=== PATIENT | female | born 1970 | race Caucasian/White ===

== ENCOUNTER 2018-06-04 16:02 | Inpatient (IN) | payer BC, SELFPAY ==
[~2018-06-04 16:02] MED LIST: ISOVUE-370 76%-LOCM 1 ML ONE
[2018-06-04] MEDS ORDERED: Magnesium Sulfate 2 GM in Sodium Chloride 0.9% 100 ML IVPB ONE (16:30)
--- NOTE | 2018-06-04 16:33 | RAD ---
PORTABLE UPRIGHT CHEST 06/04/18 PROVIDED CLINICAL HISTORY: Tachycardia. FINDINGS: Comparison 02/14/16. The cardiac and mediastinal silhouette is unchanged in appearance. Thoracic aortic stent graft materi al is again noted as are median sternotomy changes. The examination is rotated, limiting assessment. There is either elevation of the left hemidiaphragm or left basilar pleural or parenchymal opacity. T here is no evidence for pneumothorax. The right lung appears clear. IMPRESSION: Rotated exam, followup PA and lateral views recommended. POS: [facility]
[2018-06-04 17:28] LABS: #Eosinphils 0.2 thou/uL (0.0-0.7); #Lymphocytes 1.9 thou/uL (1.20-3.40); #Monocytes 0.6 thou/uL (0.11-0.59); %Basophils 0.2 % (0.0-1.0); %Eosinophils 1.9 % (0.0-10.0); %Lymphocytes 21.5 % (21.0-51.0); %Monocytes 7.3 % (0.0-10.0); %Neutrophils 69.1 % (42.0-75.0); Hemoglobin 13.4 g/dL (12.0-16.0); Mean Corpuscular HGB CONC 32.7 g/dL (32.0-36.0); Mean Corpuscular Hemoglobin 29.5 pg (27.0-31.0); Mean Corpuscular Volume 90.2 fL (78.0-98.0); Platelet Count 210 thou/uL (130-400); RBC Distribution Width 14.2 % (11.5-14.5); Red Blood Cell (RBC) Count 4.54 mill/uL (4.20-5.40); White Blood Cell (WBC) Count 8.7 thou/uL (4.8-10.8)
[2018-06-04] MEDS ORDERED: Acetaminophen 500 MG TAB ONE (17:38)
[2018-06-04 17:52] LABS: ALT (SGPT) 15 U/L (8-55); AST (SGOT) 17 U/L (5-34); Albumin 3.6 g/dL (3.5-5.0); Alkaline Phosphatase 101 U/L (40-150); Anion Gap 14 mmol/L (10-20); BUN (Urea Nitrogen) 17 mg/dL (7.0-18.7); Bilirubin, Total 0.2 mg/dL (0.2-1.2); CK (CPK) 78 U/L (29-168); Calc. Creatinine Clearance 0 mL/min (70-130); Calcium 8.3 mg/dL (7.8-10.44); Carbon Dioxide 19 mmol/L (22-29); Chloride 109 mmol/L (98-107); Estimated GFR-MDRD 80; Globulin 2.6 g/dL (2.4-3.5); Glucose 102 mg/dL (70-105); Lipase 21 U/L (8-78); Potassium 4.1 mmol/L (3.5-5.1); Protein, Total 6.2 g/dL (6.0-8.3); Sodium 138 mmol/L (136-145)
[2018-06-04 17:55] LABS: Troponin I Less than 0.010 ng/mL (< 0.028)
--- NOTE | 2018-06-04 19:42 | CT ---
CTA CHEST WITH IV CONTRAST AND 3D POSTPROCESSING CTA ABDOMEN WITH IV CONTRAST AND 3D POSTPROCESSING 06/04/18 HISTORY: SVT, coronary artery disease, aortic dissection. COMPARISON: 02/14/16. FINDINGS: A stent graft in the descending thoracic aorta is again seen. No aneurysmal dilatation of the ascendi ng aorta is noted. There is continued aneurysmal dilatation of the thoracic aorta which is stable and measures about 6.2 cm. The complex dissection in the abdominal aorta is again seen, but the superior extension on the current exam starts below the level of the renal arteries unlike the previous one where it began above the level of the renal arteries. Aneurysmal dilatation of the abdominal aorta me asures 4.1 cm. Dissection extends into the right common iliac artery which has aneurysmal dilatation and measures 4.8 cm. The aneurysm contains clot formation which was not seen on the previous study. T here is good flow in the celiac axis, SMA and both renal arteries. There is surgical clips seen on th e upper abdominal aorta. Right sided thyroid nodule is stable. No pneumothoraces, lobar consolidation, or lung masses are note d. There are mild dependent changes in the lung bases. No pleural or pericardial effusions are seen. Changes of CABG are again noted. The liver, spleen, pancreas, adrenal glands and kidneys are unremarkable. There is sigmoid diverticul osis. The uterus is present. No free air, free fluid is noted in the abdomen. Degenerative changes ar e present in the spine. 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 Extent of dissection of the abdominal aorta starts at a lo wer level compared to the previous study of 02/14/16. POS: [facility]
[2018-06-04 20:44] LABS: Troponin I Less than 0.010 ng/mL (< 0.028)
[2018-06-04] MEDS ORDERED: Ondansetron ODT 4 MG TAB SL PRN (22:21)
[2018-06-04] MEDS ORDERED: Ondansetron HCl/PF 4 MG/2 ML Vial IVP PRN (22:21)
[2018-06-04] MEDS ORDERED: Sodium Chloride 0.9% 1,000 ML IV SCH (22:30)
[2018-06-04] MEDS ORDERED: Aspirin 325 MG TAB PO SCH (22:30)
[2018-06-04] MEDS ORDERED: Acetaminophen 325 MG TAB PO PRN (23:06)
[2018-06-05 00:52] VITALS: BMI 32.7
[2018-06-05] MEDS: HYDROcodone/Acetaminophen 10/325 mg Tablet PO PRN ×3 (02:41→18:11)
--- NOTE | 2018-06-05 04:01 | HP ---
CODE STATUS: FULL CODE. PRIMARY CARE PHYSICIAN: Out-of-town physician. TIME OF EVALUATION: 08:05 p.m. CHIEF COMPLAINT: Palpitations. HISTORY OF PRESENT ILLNESS: This is a 48-year-old female patient with past medical history of america porras. The patient called EMS when she was found to be cold, clammy, diaphoretic. The symptoms start ed around 3:00 p.m. with no clear triggers, no alleviating factors. The patient reported that she monroy d similar symptoms 2 weeks ago and needed an electrical shock to revert the rhythm. Today, she neede d adenosine that was given at 6 and 12 mg with improvement of the rate; however, was not completely c ontrolled. The patient has been on Cardizem drip, that is now controlled. Of note, the patient also has significant past medical history of aortic aneurysm repair. Symptoms are reported as severe. REVIEW OF SYSTEMS: Constitutional: No fever, no chills. The patient reports generalized weakness. Respiratory: No cough or sputum production. shortness of breath. Cardiovascular: The patie nt reported palpitation, chest pain, shortness of breath. Gastrointestinal: No nausea, no vomiting. Diarrhea, abdominal pain. HIDE GRADER: No dizziness, headache, or feeling lightheaded. Genitourinary: N o burning with urination. Extremities: No leg swelling. All other systems were reviewed and negati ve except for the findings mentioned above. PAST MEDICAL HISTORY: CHF, arrhythmia, SVT, hyperlipidemia, hypertension, aortic dissection repair x 2. PAST SURGICAL HISTORY: Aortic valve replacement with porcine valve, aortic root repair surgery, surg ical history of cholecystectomy, . PSYCHIATRIC HISTORY: Anxiety, bipolar disorder. SOCIAL HISTORY: No alcohol, no drugs. The patient is an every-day smoker of 5 cigarettes a day. FAMILY HISTORY: Significant history of aortic aneurysm, brother dying of cardiac tamponade from aort ic rupture. ALLERGIES: Aldactone. MEDICATIONS: Amlodipine, carvedilol, losartan, aspirin, nitroglycerin, and pravastatin. PHYSICAL EXAMINATION: VITAL SIGNS: On presentation, blood pressure 167/80 with heart rate 85, respiratory rate was 18, tem perature 98.4, pain 7/10, oxygen saturation 98% on room air. GENERAL APPEARANCE: The patient is alert, oriented, not in acute distress. HEENT: Eyes, normal conjunctivae. Moist oral mucosa. Anicteric. NECK: No JVD. RESPIRATORY: Bilateral air entry. No rales, no wheezing. Symmetric expansion. CARDIOVASCULAR: Normal rate, regular rhythm. No murmurs, no gallop, no edema. ABDOMEN: Soft. Normal bowel sounds. MUSCULOSKELETAL: Baseline range of motion and strength. No tenderness. SKIN: Warm and intact. No pallor, no rash, no redness. NEUROLOGIC: Baseline sensorium. No evidence of any new focal weakness. Baseline speech. Cranial n erves seem to be intact. PSYCHIATRIC: The patient is in good mood. No anxiety. Oriented, optimal judgment. DIAGNOSTIC DATA: EKG was reviewed. The patient has normal sinus rhythm, left ventricular hypertroph y with repolarization abnormalities. Ventricular rate 87, W[place] 158, QRS 78, QT corrected 452. CT diss ection was reviewed and discussed with the performing physician from ER. The patient has stent graft in the distal thoracic aorta, dissection of the abdominal aorta without aneurysm of the abdominal ao rta and right common iliac artery. Extent of dissection of the abdominal aorta is at a lower level c ompared to the previous study from 02/18/2016. LABORATORY DATA: Labs were reviewed. White count 8.7 with hemoglobin 13.4, MCV 90.2, platelet count 210. Sodium 138, potassium 4.1, chloride 109, carbon dioxide 19, anion gap 14, BUN 17, creatinine 0 .7, GFR 80, glucose 102, calcium 8.3. LFTs were normal. Troponin was negative x2. Beta natriuretic peptide was negative. Lipase was normal. ASSESSMENT AND PLAN: The patient will be placed in the hospital with following medical problems. 1. Episode of paroxysmal supraventricular tachycardia, got controlled with Cardizem drip, failed to control with adenosine. I will consult Cardiology. We will follow recommendations. 2. History of dissection and aortic aneurysm. CT findings were reviewed with performing physician f kami , who has contacted Dr. Kaur and will see the patient. Reportedly, no need for any acute inte rvention at this point. We will control blood pressure. 3. Uncontrolled hypertension. The patient is on Cardizem drip. We will reconcile home meds, adjust treatment as needed. 4. History of hyperlipidemia. Reconcile home medications. Low-cholesterol diet is advised. 5. Deep venous thrombosis prophylaxis. 6. Reported history of congestive heart failure. This is not on records, we will order an echo.
[2018-06-05 05:58] LABS: #Eosinphils 0.2 thou/uL (0.0-0.7); #Lymphocytes 1.9 thou/uL (1.20-3.40); #Monocytes 0.5 thou/uL (0.11-0.59); %Basophils 0.2 % (0.0-1.0); %Eosinophils 2.7 % (0.0-10.0); %Lymphocytes 28.8 % (21.0-51.0); %Monocytes 8.1 % (0.0-10.0); %Neutrophils 60.2 % (42.0-75.0); Hemoglobin 12.8 g/dL (12.0-16.0); Mean Corpuscular HGB CONC 33.2 g/dL (32.0-36.0); Mean Corpuscular Hemoglobin 29.9 pg (27.0-31.0); Mean Corpuscular Volume 89.9 fL (78.0-98.0); Mean Platelet Volume 7.1 fL (7.4-10.4); Platelet Count 217 thou/uL (130-400); RBC Distribution Width 14.2 % (11.5-14.5); Red Blood Cell (RBC) Count 4.28 mill/uL (4.20-5.40); White Blood Cell (WBC) Count 6.7 thou/uL (4.8-10.8)
[2018-06-05 06:13] LABS: Anion Gap 13 mmol/L (10-20); BUN (Urea Nitrogen) 18 mg/dL (7.0-18.7); Calc. Creatinine Clearance 170 mL/min (70-130); Calcium 8.6 mg/dL (7.8-10.44); Carbon Dioxide 19 mmol/L (22-29); Chloride 109 mmol/L (98-107); Estimated GFR-MDRD 85; Glucose 106 mg/dL (70-105); Sodium 137 mmol/L (136-145)
[2018-06-05] MEDS ORDERED: Diabetic Tussin 200 MG/10 ML UDCUP PO PRN (08:35)
[2018-06-05] MEDS ORDERED: Temazepam 15 MG CAP PO PRN (08:35)
[2018-06-05] MEDS ORDERED: Ondansetron HCl/PF 4 MG/2 ML Vial IVP PRN (08:35)
[2018-06-05] MEDS ORDERED: Senokot 8.6 MG TAB PO PRN (08:35)
[2018-06-05] MEDS ORDERED: Loperamide HCl 2 MG CAP PO PRN (08:35)
[2018-06-05] MEDS ORDERED: Nitroglycerin 0.4 MG TAB (25 Tab Bottle) SL PRN (08:35)
[2018-06-05] MEDS ORDERED: Loratadine 10 MG TAB PO PRN (08:35)
[2018-06-05] MEDS ORDERED: cloNIDine 0.1 MG TAB PO PRN (08:35)
[2018-06-05] MEDS ORDERED: Chloraseptic Spray 180 ml Bottle PO PRN (08:35)
[2018-06-05] MEDS ORDERED: Milk Of Magnesia 30 ML UDCUP PO PRN (08:35)
[2018-06-05] MEDS ORDERED: Eucerin (Mineral Oil/Petrolatum,White) 30 gm Jar TOP PRN (08:35)
[2018-06-05] MEDS ORDERED: Mag-Al 1200 mg/1200 mg/30 ML UDCUP PO PRN (08:35)
[2018-06-05] MEDS ORDERED: Famotidine 20 MG TAB PO PRN (08:35)
[2018-06-05] MEDS ORDERED: Acetaminophen 325 MG TAB PO PRN (08:35)
[2018-06-05] MEDS ORDERED: Sodium Chloride 0.65% Nasal 44 ML BOT EA NARE PRN (08:35)
[2018-06-05] MEDS ORDERED: Artificial Tears 18 DROP/0.9 ML EA EYE PRN (08:35)
[2018-06-05] MEDS ORDERED: Labetalol HCl 100 MG/20 ML VIAL SLOW IVP PRN (08:35)
[2018-06-05 09:02] LABS: Cardiac Risk 4.3 (Less than 4.5)
[2018-06-05] MEDS: Amlodipine 10 MG TAB PO SCH (09:32)
[2018-06-05] MEDS: Carvedilol 25 MG TAB PO SCH ×2 (09:32→20:07)
--- NOTE | 2018-06-05 13:29 | PDOC.PN ---
- Subjective Encounter Start Date: 06/05/18 Encounter Start Time: 08:20 -: old records requested/rev Patient seen and examined. No new complaints. No overnight events - Objective Resuscitation Status: Resuscitation Status FULL:Full Resuscitation MAR Reviewed: Yes Vital Signs & Weight: Vital Signs (12 hours) Temp Pulse Resp BP Pulse Ox 06/05/18 12:26 53 L 106/55 L 06/05/18 11:40 98.2 F 56 L 19 116/56 L 96 06/05/18 09:32 67 06/05/18 09:27 97.6 F 67 16 142/68 H 96 06/05/18 04:22 97.5 F L 79 20 144/78 H 96 Weight Weight 252 lb I&O: 06/04/18 06/05/18 06/06/18 06:59 06:59 06:59 Intake Total 135 Balance 135 Result Diagrams: 06/05/18 05:23 06/05/18 05:23 Radiology Reviewed by me: Yes EKG Reviewed by me: Yes Phys Exam - Physical Examination Constitutional: NAD HEENT: PERRLA, moist MMs, sclera anicteric Neck: no JVD, supple Respiratory: no wheezing, no rales, no rhonchi Cardiovascular: RRR, no significant murmur, no rub Gastrointestinal: soft, non-tender, no distention, positive bowel sounds Musculoskeletal: no edema, pulses present Neurological: non-focal, normal sensation, moves all 4 limbs Lymphatic: no nodes Psychiatric: normal affect, A&O x 3 Skin: no rash, normal turgor Dx/Plan (1) Chest pain Code(s): R07.9 - CHEST PAIN, UNSPECIFIED Status: Acute (2) Dissection of abdominal aorta Code(s): I71.02 - DISSECTION OF ABDOMINAL AORTA Status: Chronic (3) Hypertension Code(s): I10 - ESSENTIAL (PRIMARY) HYPERTENSION Status: Chronic (4) Obesity (BMI 30.0-34.9) Code(s): E66.9 - OBESITY, UNSPECIFIED Status: Chronic - Plan cont current plan of care * cardiology and cardiovascular surgeon consulted * will consider discharge based on consultants recommendation * medication reviewed as below * symptomatic treatment. Review of Systems - Review of Systems Eyes: negative: Pain, Vision Change, Conjunctivae Inflammation, Eyelid Inflammation, Redness, Other ENT: negative: Ear Pain, Ear Discharge, Nose Pain, Nose Discharge, Nose Congestion, Mouth Pain, Mouth Swelling, Throat Pain, Throat Swelling, Other Respiratory: negative: Cough, Dry, Shortness of Breath, Hemoptysis, SOB with Excertion, Pleuritic Pain, Sputum, Wheezing Cardiovascular: negative: chest pain, palpitations, orthopnea, paroxysmal nocturnal dyspnea, edema, light headedness, other Gastrointestinal: negative: Nausea, Vomiting, Abdominal Pain, Diarrhea, Constipation, Melena, Hematochezia, Other Genitourinary: negative: Dysuria, Frequency, Incontinence, Hematuria, Retention , Other Musculoskeletal: negative: Neck Pain, Shoulder Pain, Arm Pain, Back Pain, Hand Pain, Leg Pain, Foot Pain, Other Skin: negative: Rash, Lesions, Raúl, Bruising, Other - Medications/Allergies Allergies/Adverse Reactions: Allergies Allergy/AdvReac Type Severity Reaction Status Date / Time nalbuphine HCl [From Nubain] Allergy Verified 02/14/16 18:34 spironolactone Allergy Verified 06/05/18 00:32 [From Aldactone] Medications: Current Medications Acetaminophen (Tylenol) 650 mg PO Q4H PRN PRN Reason: Headache/Fever or Mild Pain Hydrocodone Bitart/Acetaminophen ([place] 10/325) 1 tab PO TIDPRN PRN PRN Reason: Moderate Pain (4-6) Last Admin: 06/05/18 10:30 Dose: 1 tab Al Hydroxide/Mg Hydroxide (Maalox) 15 ml PO Q4H PRN PRN Reason: Heartburn or Indigestion Amlodipine Besylate (Norvasc) 10 mg PO DAILY [facility] Last Admin: 06/05/18 09:32 Dose: 10 mg Artificial Tears (Tears Naturale) 0 drop EA EYE PRN PRN PRN Reason: Dry Eyes Carvedilol (Coreg) 37.5 mg PO BID [facility] Last Admin: 06/05/18 09:32 Dose: 37.5 mg Clonidine (Catapres) 0.1 mg PO Q4H PRN PRN Reason: Systolic BP > 180 Famotidine (Pepcid) 20 mg PO BIDPRN PRN PRN Reason: Heartburn or Indigestion Guaifenesin (Robitussin Sf) 200 mg PO Q4H PRN PRN Reason: Cough Diltiazem HCl 125 mg/Miscellaneous Medication 1 each/ Sodium Chloride 125 mls @ 5 mls/hr IVPB INF SUSAN PRN Reason: Protocol Stop: 06/05/18 16:29 Last Admin: 06/05/18 00:47 Dose: Not Given Labetalol HCl (Normodyne) 20 mg SLOW IVP Q4H PRN PRN Reason: Systolic BP > 180 Loperamide HCl (Imodium) 2 mg PO PRN PRN PRN Reason: Diarrhea/Loose Stools Loratadine (Claritin) 10 mg PO DAILYPRN PRN PRN Reason: Sinus Symptoms Magnesium Hydroxide (Milk Of Magnesium) 30 ml PO DAILYPRN PRN PRN Reason: Constipation Mineral Oil/White Petrolatum (Eucerin Cream) 0 gm TOP BIDPRN PRN PRN Reason: Dry Skin Nitroglycerin (Nitrostat) 0.4 mg SL PRN PRN PRN Reason: Pain Ondansetron HCl (Zofran Odt) 4 mg PO Q6H PRN PRN Reason: Nausea/Vomiting Ondansetron HCl (Zofran) 4 mg IVP Q6H PRN PRN Reason: Nausea/Vomiting Phenol (Chloraseptic [place] 180 Ml Bot) 0 ml PO PRN PRN PRN Reason: Sore Throat Senna (Senokot) 2 tab PO HSPRN PRN PRN Reason: Constipation Sodium Chloride ([place] Nasal [place] 0.65%) 0 ml EA NARE QIDPRN PRN PRN Reason: Nasal Congestion Temazepam (Restoril) 15 mg PO HSPRN PRN PRN Reason: Insomnia
[2018-06-05] MEDS: Ondansetron ODT 4 MG TAB PO PRN (13:59)
--- NOTE | 2018-06-06 01:08 | CON ---
DATE OF CONSULTATION: 06/05/2018 ELECTROPHYSIOLOGY CONSULTATION REFERRING PHYSICIAN: Johana Alvarado MD I am seeing Ms. Aldrich at our [facility] telemetry floor as an electrophysiology independent crop consultant. Her problems are, 1. Paroxysmal supraventricular tachycardia. A. 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 B. Adenosine termination in the ER was noted. 2. History of aortic dissection, status post ascending aneurysm repair and valve placement. A. CT scan from 06/2018 suggestive of stent graft in the distal thoracic aorta, dissection of the ab dominal aorta with aneurysm of the abdominal aorta and right common iliac artery is seen. Somewhat l ower level than on prior study on 02/14/2016. 3. History of bioprosthetic aortic valve replacement at the time of the aneurysm repair. 4. History of hypertension. 5. Obesity. 6. History of congestive heart failure. 7. History of hyperlipidemia. ALLERGIES: ALDACTONE. MEDICATIONS AT HOME: Included amlodipine, potassium, carvedilol, nitroglycerin, hydrocodone. SUBJECTIVE: Ms. Aldrich is here with symptoms of rapid palpitations. These have been bothering her fo r last 5 years. She was told that she had atrial fibrillation in the past, but more recently she was told she had SVT. She was treated with flecainide for over a year, which she takes on a p.r.n. basi s. This seems to have controlled her episodes well. More recently, she was in the hospital and she was re-evaluated by Cardiology service in [place] where she lived at that time, but then she w as told not to take flecainide anymore for possible concerns for complications. Her episodes occasio sandra responds to vagal maneuvers, but at this time required adenosine for termination in the ER. Si nce then she is doing fair. She has no dizziness, loss of consciousness. She never passed out with these episodes. She has significant chest pains bilaterally at the time of the pains, which waxes an d wanes. No stroke-like symptoms. No neurological deficits. No fever, chills, cough. No new sympt oms suggestive of dissection. Rest of 12-point systems is otherwise unremarkable. PAST MEDICAL HISTORY: As above. SOCIAL HISTORY: The patient denies ETOH or drug use. Light smoker. FAMILY HISTORY: Significant for a brother dying of dissection and tamponade recently. Also, mother and father had heart history. She herself denies having history of morphinism. OBJECTIVE DATA: VITAL SIGNS: Blood pressure 106/55, heart rate 53, respirations 12, temperature 98.2 degrees Fahrenh eit. GENERAL: Alert and oriented obese woman in no apparent distress. NECK: Supple. Jugular veins are not distended. CHEST: Coarse without crackles. CARDIOVASCULAR: Heart sounds are regular to rate and rhythm. 1/6 systolic ejection murmur is heard. No gallop is appreciated. ABDOMEN: Benign. Bowel sounds are positive. EXTREMITIES: Lower extremities without edema, clubbing, or cyanosis. Pulses are adequate. NEUROLOGIC: The patient is nonfocal. MUSCULOSKELETAL: Without joint swelling or deformities. SKIN: Without rash. DATABASE: The EKGs were reviewed, supplied by the ER. Initial EKG reveals a narrow-complex supraven tricular tachycardia with rates about 170 beats per minute. The PVA seems to be closely following th e QRS within [address]-T changes are also seen. After adenosine, EKGs reveale d sinus rhythm with no ST-T changes. Normal [place] interval. CT of the chest reveals stent graft in the descending thoracic aorta seen and dissection is seen in t he abdominal aorta with aneurysm of the abdominal aorta and the right common iliac artery, seems to b e in lower level than in 02/2016. ASSESSMENT AND PLAN: Ms. Aldrich is a pleasant 48-year-old woman with history of aortic dissection, bi oprosthetic aortic valve in place who had also aortic aneurysm repair and thoracic aorta stenting. S he still has residual descending aortic dissection treated conservatively. She is presenting with re current palpitations. 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 She also carries a history of paroxys mal atrial fibrillation prior to this, but that is not documented on the chart. 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 Alternative to that would be more aggressive AV brcok blocking agents and resumption of her antiarrhythmic agents. At this point, I would prefer an invasive approach. P adam to that, I would like to obtain more comprehensive cardiac evaluation regarding her current aneu rysm status as well as her valve status. Echocardiogram was already performed, results pending. Rec ords from [place] would be also helpful. Tentatively, we will schedule her for an EP study fo r 06/08/2018. I discussed the procedure and risks and benefits involved with that. At this point, w e are planning EP study and possible ablation procedure. chance of infection, bleeding, tampon della, worsening dissection as well. We will follow with you. Thank you for allowing me to participate in the care of this patient.
--- NOTE | 2018-06-06 02:53 | CON ---
DATE OF CONSULTATION: 06/05/2018 HISTORY: Joy Aldrich is a 48-year-old white female from [place] who has history of aortic valve replacement with porcine valve, as well as aortic root repair, and history of aortic dissection repair also at another time. She states that approximately 8 or 9 years ago, she started having problems with rapid heartbeat. She states every 3-4 months, she will have to go to the emergency room for termination of this. The last episode was 2 weeks ago and apparently she had to have electrical cardioversion. Apparently, from what she is saying, no one has ever mentioned the possibility of radiofrequency ablation of this. She had another such episode yesterday. Heart rate was 176 per minute on the strips from the paramedics. She was given adenosine 6 mg and 12 mg with improvement in the right, but was not in control. She was placed on Cardizem drip and converted to sinus rhythm. Cardizem drip was stopped earlier today due to heart rates less than 60 per minute. PAST MEDICAL HISTORY: Supraventricular tachycardia, hyperlipidemia, hypertension, aortic valve replacement and aortic dissection repair and apparently another dissection repair at a later time. MEDICATIONS: Amlodipine 10 mg daily, carvedilol 25 mg 1-1/2 b.i.d., nitroglycerin p.r.n., potassium 25 mg daily and [place]. ALLERGIES: SPIRONOLACTONE, and NUBAIN. SOCIAL HISTORY: She does not drink. She smokes 5 cigarettes per day. FAMILY HISTORY: Significant for brother dying of cardiac tamponade from aortic rupture. REVIEW OF SYSTEMS: Twelve point review of systems otherwise unremarkable. PHYSICAL EXAMINATION: VITAL SIGNS: 143/79, pulse of 77. HEENT: PERRL. NECK: Supple. CHEST: Clear. CARDIAC: S1, S2 normal, without any S3, S4. There is a 1/6 systolic murmur. Carotid upstrokes normal, without bruits. ABDOMEN: Normal bowel sounds, without tenderness. Obese. EXTREMITIES: Revealed no clubbing, cyanosis or edema. NEUROLOGIC: Grossly intact. SKIN: Warm and dry. LABORATORY: EKGs at the scene revealed supraventricular tachycardia with rate of 176 per minute with nonspecific ST and T-wave changes. EKG after she converted reveals normal sinus rhythm and is a fairly unremarkable. CBC is normal. Sodium 137, potassium 4.0, chloride 109, carbon dioxide 19, BUN 18, creatinine 0.73. Cardiac enzymes x3 are normal. Cholesterol 155, triglycerides 219, HDL 36, LDL 75. Chest CT revealed a stent graft in the distal thoracic aorta and dissection of the abdominal aorta with aneurysm of the abdominal aorta and right common iliac artery. Discontinue aneurysmal dilatation of the thoracic aorta at 6.2 cm. Abdominal aortic aneurysm was 4.1 cm. IMPRESSION: 1. Supraventricular tachycardia, converted with intravenous Cardizem. 2. Status post aortic valve replacement with aortic graft. Apparently, she had surgeries second time for another area of aortic dissection. 3. Hypertension. 4. Hyperlipidemia. 5. Obesity. PLAN: Echocardiogram will be performed to to assess left ventricular function as well as aortic valvular function. It was recommended that she undergo radiofrequency ablation of her SVT since she was requiring emergency room visits every 3-4 months for termination of her arrhythmia. LISSET
[2018-06-06] MEDS: HYDROcodone/Acetaminophen 10/325 mg Tablet PO PRN ×3 (06:11→20:44)
[2018-06-06] MEDS: Carvedilol 25 MG TAB PO SCH ×2 (10:07→20:46)
[2018-06-06] MEDS: Amlodipine 10 MG TAB PO SCH (10:08)
--- NOTE | 2018-06-06 11:54 | PDOC.PN ---
- Subjective Encounter Start Date: 06/06/18 Encounter Start Time: 08:00 Patient seen and examined. No new complaints. No overnight events pt's present bedside - Objective Resuscitation Status: Resuscitation Status FULL:Full Resuscitation MAR Reviewed: Yes Vital Signs & Weight: Vital Signs (12 hours) Temp Pulse Resp BP BP Pulse Ox 06/06/18 10:08 71 06/06/18 10:05 97.8 F 71 15 135/65 96 06/06/18 04:00 98.1 F 68 18 127/60 94 L Weight Weight 260 lb 3.2 oz I&O: 06/05/18 06/06/18 06/07/18 06:59 06:59 06:59 Intake Total 135 1281 Output Total 700 Balance 135 581 Result Diagrams: 06/05/18 05:23 06/05/18 05:23 EKG Reviewed by me: Yes (nsr) Phys Exam - Physical Examination Constitutional: NAD HEENT: PERRLA, moist MMs, sclera anicteric Neck: no JVD, supple Respiratory: no wheezing, no rales, no rhonchi Cardiovascular: RRR, no rub SM+ Gastrointestinal: soft, non-tender, no distention, positive bowel sounds Musculoskeletal: no edema, pulses present Neurological: non-focal, normal sensation, moves all 4 limbs Lymphatic: no nodes Psychiatric: normal affect, A&O x 3 Skin: no rash, normal turgor Dx/Plan (1) Chest pain Code(s): R07.9 - CHEST PAIN, UNSPECIFIED Status: Acute (2) Dissection of abdominal aorta Code(s): I71.02 - DISSECTION OF ABDOMINAL AORTA Status: Chronic (3) Hypertension Code(s): I10 - ESSENTIAL (PRIMARY) HYPERTENSION Status: Chronic (4) Obesity (BMI 30.0-34.9) Code(s): E66.9 - OBESITY, UNSPECIFIED Status: Chronic (5) Dyslipidemia Code(s): E78.5 - HYPERLIPIDEMIA, UNSPECIFIED Status: Chronic (6) H/O abdominal aortic aneurysm Code(s): Z86.79 - PERSONAL HISTORY OF OTHER DISEASES OF THE CIRCULATORY SYSTEM Status: Chronic (7) H/O aortic valve replacement with porcine valve Code(s): Z95.3 - PRESENCE OF XENOGENIC HEART VALVE Status: Chronic (8) 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 Review of Systems - Review of Systems ENT: negative: Ear Pain, Ear Discharge, Nose Pain, Nose Discharge, Nose Congestion, Mouth Pain, Mouth Swelling, Throat Pain, Throat Swelling, Other Respiratory: negative: Cough, Dry, Shortness of Breath, Hemoptysis, SOB with Excertion, Pleuritic Pain, Sputum, Wheezing Cardiovascular: negative: chest pain, palpitations, orthopnea, paroxysmal nocturnal dyspnea, edema, light headedness, other Gastrointestinal: negative: Nausea, Vomiting, Abdominal Pain, Diarrhea, Constipation, Melena, Hematochezia, Other Genitourinary: negative: Dysuria, Frequency, Incontinence, Hematuria, Retention , Other Musculoskeletal: negative: Neck Pain, Shoulder Pain, Arm Pain, Back Pain, Hand Pain, Leg Pain, Foot Pain, Other Skin: negative: Rash, Lesions, Raúl, Bruising, Other - Medications/Allergies Allergies/Adverse Reactions: Allergies Allergy/AdvReac Type Severity Reaction Status Date / Time nalbuphine HCl [From Nubain] Allergy Verified 02/14/16 18:34 spironolactone Allergy Verified 06/05/18 00:32 [From Aldactone] Medications: Current Medications Acetaminophen (Tylenol) 650 mg PO Q4H PRN PRN Reason: Headache/Fever or Mild Pain Hydrocodone Bitart/Acetaminophen ([place] 10/325) 1 tab PO TIDPRN PRN PRN Reason: Moderate Pain (4-6) Last Admin: 06/06/18 06:11 Dose: 1 tab Al Hydroxide/Mg Hydroxide (Maalox) 15 ml PO Q4H PRN PRN Reason: Heartburn or Indigestion Amlodipine Besylate (Norvasc) 10 mg PO DAILY SUSAN Last Admin: 06/06/18 10:08 Dose: 10 mg Artificial Tears (Tears Naturale) 0 drop EA EYE PRN PRN PRN Reason: Dry Eyes Carvedilol (Coreg) 37.5 mg PO BID SUSAN Last Admin: 06/06/18 10:07 Dose: 37.5 mg Clonidine (Catapres) 0.1 mg PO Q4H PRN PRN Reason: Systolic BP > 180 Famotidine (Pepcid) 20 mg PO BIDPRN PRN PRN Reason: Heartburn or Indigestion Guaifenesin (Robitussin Sf) 200 mg PO Q4H PRN PRN Reason: Cough Labetalol HCl (Normodyne) 20 mg SLOW IVP Q4H PRN PRN Reason: Systolic BP > 180 Loperamide HCl (Imodium) 2 mg PO PRN PRN PRN Reason: Diarrhea/Loose Stools Loratadine (Claritin) 10 mg PO DAILYPRN PRN PRN Reason: Sinus Symptoms Magnesium Hydroxide (Milk Of Magnesium) 30 ml PO DAILYPRN PRN PRN Reason: Constipation Mineral Oil/White Petrolatum (Eucerin Cream) 0 gm TOP BIDPRN PRN PRN Reason: Dry Skin Nitroglycerin (Nitrostat) 0.4 mg SL PRN PRN PRN Reason: Pain Ondansetron HCl (Zofran Odt) 4 mg PO Q6H PRN PRN Reason: Nausea/Vomiting Last Admin: 06/05/18 13:59 Dose: 4 mg Ondansetron HCl (Zofran) 4 mg IVP Q6H PRN PRN Reason: Nausea/Vomiting Phenol (Chloraseptic [place] 180 Ml Bot) 0 ml PO PRN PRN PRN Reason: Sore Throat Senna (Senokot) 2 tab PO HSPRN PRN PRN Reason: Constipation Sodium Chloride ([place] Nasal [place] 0.65%) 0 ml EA NARE QIDPRN PRN PRN Reason: Nasal Congestion Temazepam (Restoril) 15 mg PO HSPRN PRN PRN Reason: Insomnia
[2018-06-06] MEDS: Ondansetron ODT 4 MG TAB PO PRN (22:29)
[2018-06-07 04:19] VITALS: TEMP 97.9
[2018-06-07] MEDS: HYDROcodone/Acetaminophen 10/325 mg Tablet PO PRN (09:15)
[2018-06-07] MEDS: Carvedilol 25 MG TAB PO SCH (09:18)
--- NOTE | 2018-06-07 11:03 | DIS ---
DATE OF ADMISSION: 06/04/2018 DATE OF DISCHARGE: 06/07/2018 PRIMARY CARE PHYSICIAN: [facility] call admission. DISCHARGE DISPOSITION: Home. PRIMARY DISCHARGE DIAGNOSIS: Chest pain related with paroxysmal tachycardia. SECONDARY DISCHARGE DIAGNOSES: History of repair of dissecting aneurysm of descending thoracic aorta , dyslipidemia, paroxysmal supraventricular tachycardia, history of abdominal aortic aneurysm, histor y of aortic valve replacement with porcine valve, hypertension, obesity with body mass index 33, hist ory of dissection of abdominal aorta. PRIMARY PROCEDURE/OPERATION: None. RADIOLOGICAL INVESTIGATION: Chest x-ray on admission showed no acute cardiopulmonary process. CT di ssection protocol reported as stent in distal thoracic aorta, dissection of abdominal aorta with aneu rysm of abdominal aorta and right common iliac artery. Echocardiography showed normal EF with diasto lic dysfunction, bioprosthetic aortic valve. SIGNIFICANT LABORATORY DATA: WBC 6.7, hemoglobin 12.8, platelet 217. Sodium 137, potassium 4.0, BUN 18, creatinine 0.73 and calcium 8.6. Cardiac enzymes negative x3. BNP 57.8, LDL 75, LFT normal. DISCHARGE MEDICATIONS: Tylenol #3 one or two tablets p.o. q.6 hourly p.r.n., Coreg 37.5 mg p.o. b.i. d., Cardizem CD 360 mg p.o. daily, [place] 10 one tablet t.i.d. p.r.n., nitroglycerin 0.4 mg sublingual p.r.n., potassium chloride one tablet daily. CONTRAINDICATIONS: None. CODE STATUS: FULL CODE. INPATIENT CONSULTANTS: Dr. Krueger, door liner was following while in hospital. Dr. Pancho Ahumada, geographic information scientist was consulted while in hospital. TEST RESULTS PENDING ON DISCHARGE: None. ALLERGIES: NALBUPHINE, ALDACTONE. DISCHARGE PLAN: Post hospital, the patient will follow up with primary care physician, Dr. Krueger and Dr. Pancho Ahumada as instructed. HOSPITAL COURSE: A 48-year-old female who was admitted by Dr. Herman on 06/05/2018. Please see hi s H&P for further details. The patient presented to emergency room with chest pain and on admission, she had diagnosis of SVT by paramedics with telemetry strip. The patient was given Cardizem bolus a nd subsequently Cardizem drip was started while in hospital and she converted to sinus rhythm. Dr. Dora licea was consulted. Echocardiography was obtained. Dr. Krueger recommended Electrophysiology co nsultation. Electrophysiology was recommended an electrophysiologic study given paroxysmal SVT and r ecurrent emergency room visit, but patient and her was not willing to go for any kind of proc edure and they do not want to take any chance of any risk and that is why they preferred medical ther apy. We started Cardizem CD 360 mg p.o. daily, Coreg was continued while in hospital. She was on am lodipine, which was discontinued because of Cardizem started. The patient remained hemodynamically s table. Echocardiography was unremarkable. The patient was complaining of shoulder pain on discharge , but that was on examination related with ligament related injury and that is why we prescribed Tyle nol #3 upon discharge for prescription and thus she is given instruction to follow up with orthopedic if needed. The patient and her did not want to go for any ablation procedure and that is why Cardiology recommended that we can discharge her home. The patient is seen and examined at bedside today. All review of system reviewed with her and negati ve. PHYSICAL EXAMINATION: VITAL SIGNS: Currently, temperature 97.9, pulse 73, respiratory rate 18, saturation 94%, blood press ure 143/72, weight 261 pounds. GENERAL: Patient is currently alert, awake, no obvious acute distress. HEAD: Normocephalic, atraumatic. EYES: Pupils round, reactive to light. Extraocular muscle intact. ENT: Oropharynx within normal limits. Moist mucous membranes. NECK: Supple, no JVD, no thyromegaly, no carotid bruit. LUNGS: Clear to auscultation without any rhonchi or rales. CARDIAC: S1, S2 regular, soft systolic murmur noted, no gallop, no rub. ABDOMEN: Soft, benign without any tenderness. EXTREMITIES: The patient does have mild discomfort with the shoulder joint, which is related with mo vement. No local pathology identified. NEUROLOGIC: Nonfocal examination. This patient is originally from [place] where she had aortic dissection repaired and she has r ecently moved to this area when they lived with their [id number]. Currently patient has some soci al issue and that is why they do not want to go for any kind of procedure to be done. Today, I spent enough time with the patient and her to discuss about diagnosis, treatment eduar n and answered all their questions with their satisfaction. Total time spent on discharge day 31 minutes.
[2018-06-07 12:28] VITALS: BP 119/59
== END 2018-06-07 12:46 | disposition home or self-care (01) | DRG 310 ==
LOC: ERS 16:02 → 2NO 16:49
PROVIDERS: ADMIT Internal Medicine; ATTEND Internal Medicine
DX: I47.1 Supraventricular tachycardia (principal); E66.9 Obesity, unspecified; Z68.33 Body mass index [BMI] 33.0-33.9, adult; Z86.79 Personal history of other diseases of the circulatory system; E78.5 Hyperlipidemia, unspecified; I11.0 Hypertensive heart disease with heart failure; I50.9 Heart failure, unspecified
CPT/HCPCS: 36415; 71045; 71275; 80048; 80053; 80061; 82550; 82553; 83690; 83880; 84484; 85025; 93005; 93306; 96365; 96366; 96375; 96376; J2270; J3475; J7050; Q0162

== ENCOUNTER 2019-01-11 14:43 | Emergency (ER) | payer OTHER ==
[2019-01-11 15:26] LABS: #Basophils 0.1 thou/uL (0.0-0.2); #Eosinphils 0.3 thou/uL (0.0-0.7); #Lymphocytes 1.9 thou/uL (1.20-3.40); #Monocytes 0.5 thou/uL (0.11-0.59); #Neutrophils 5.1 thou/uL (1.40-6.50); %Basophils 0.7 % (0.0-1.0); %Eosinophils 3.7 % (0.0-10.0); %Monocytes 6.4 % (0.0-10.0); %Neutrophils 65.2 % (42.0-75.0); Hemoglobin 15.6 g/dL (12.0-16.0); Mean Corpuscular HGB CONC 31.6 g/dL (32.0-36.0); Mean Corpuscular Hemoglobin 29.3 pg (27.0-31.0); Mean Corpuscular Volume 92.7 fL (78.0-98.0); Mean Platelet Volume 7.4 fL (7.4-10.4); Platelet Count 229 thou/uL (130-400); Red Blood Cell (RBC) Count 5.31 mill/uL (4.20-5.40); White Blood Cell (WBC) Count 7.8 thou/uL (4.8-10.8)
[2019-01-11] MEDS ORDERED: Lorazepam 2 MG/ML VIAL ONE (15:32)
[2019-01-11] MEDS ORDERED: Fentanyl 100 MCG/2 ML VIAL ONE ×4 (15:32→18:04)
--- NOTE | 2019-01-11 15:39 | RAD ---
PORTABLE CHEST 1 VIEW: Date: 01/11/19 Time: 1412 hours HISTORY: Upper back pain between the shoulder blades. FINDINGS: Comparison made with exam of 06/04/18. The heart size is stable. The aorta is tortuous. Thoracic aorta stent graft is again seen. No lobar c onsolidation, pneumothoraces, albert pulmonary edema, or pleural effusions are identified. IMPRESSION: No acute process. POS: C
[2019-01-11] MEDS ORDERED: Esmolol 2,500 MG/250 ML 250 ML ONE ×2 (15:51→17:55)
[2019-01-11 15:53] LABS: ALT (SGPT) 11 U/L (8-55); AST (SGOT) 11 U/L (5-34); Albumin 3.9 g/dL (3.5-5.0); Alkaline Phosphatase 116 U/L (40-150); Anion Gap 13 mmol/L (10-20); BUN (Urea Nitrogen) 15 mg/dL (7.0-18.7); Bilirubin, Total 0.3 mg/dL (0.2-1.2); CK (CPK) 62 U/L (29-168); Calc. Creatinine Clearance 0 mL/min (70-130); Calcium 9.3 mg/dL (7.8-10.44); Carbon Dioxide 25 mmol/L (22-29); Chloride 108 mmol/L (98-107); Estimated GFR-MDRD 74; Globulin 2.7 g/dL (2.4-3.5); Glucose 117 mg/dL (70-105); Lipase 16 U/L (8-78); Potassium 3.6 mmol/L (3.5-5.1); Protein, Total 6.6 g/dL (6.0-8.3); Sodium 142 mmol/L (136-145)
[2019-01-11 16:08] LABS: BHCG - Serum Negative (NEGATIVE)
[2019-01-11 16:09] LABS: Pregs Control Background? CLEAR/WHITE (CLR/WHITE); Pregs Control Bar Appear? YES (CONTROL BAR)
--- NOTE | 2019-01-11 16:28 | CT ---
CT ANGIO OF CHEST AND ABDOMEN PERFORMED WITH IV CONTRAST ENHANCEMENT WITH 3D RECONSTRUCTIONS: Date: 01/11/19 HISTORY: History of coronary bypass, aortic valve replacement, and aortic root repair surgery. History of two dissections. Complaining of sudden onset of upper back pain last night. COMPARISON: 06/04/18 study. FINDINGS: The lungs are clear of any infiltrative process. Linear changes in both bases consistent with some sc ar. No pleural effusions are identified. There is a 1.7 cm right lobe thyroid nodule. It appears stable as compared to the prior exam. No sign ificant mediastinal adenopathy. Postoperative changes with an aortic stent placement is noted. The stent begins just to the left of t he origin of the left common carotid artery. There appears to be a stent also present within the prox imal subclavian artery. I do see flow within the left subclavian and vertebral. There does appear to be a dissection which extends up into the left subclavian artery. This is best demonstrated on estrella l image 63. It is a stable finding as compared to the 06/04/18 study. There is aneurysmal dilatation of the descending thoracic aorta measuring in the same fashion as obtained on the prior examination. The more proximal aorta measures approximately 5.9 cm, which is fairly similar measurement to the pre vious exam. The aneurysm extends along the course of the descending thoracic aorta. Contrast remains within the stent and I do not visualize any definitive extraluminal contrast other than a small cresc ent of what may be contrast or calcification along the posterior wall, but this is a stable finding. The stent continues into the abdominal aorta. There was an endoleak noted on the prior examination at this level, but I only see what appears to be more of a small focus of calcification, much less prom inent than on the previous examination. The AP dimension of the aorta at this level is 4.6 cm, which is similar to the previous exam. The stent ends above the level of the celiac artery. On the previous examination, there is also contrast collection posteriorly, which was also not seen. Multiple surgic al clips are seen near the level of the renal arteries and celiac and superior mesenteric arteries. 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 The origin of the superior mesenteric artery is eccentric to the left and the vessel is tortuous. I am assuming this is just related to tortuosity. Given the multiple clips in this region, it is possib le that this is a reimplantation. The origin of the left renal artery also is more posterior in posit ion, but could just be related to the tortuosity of the vessel. There is also what may be a reimplant ation of the right renal artery, which is to the left side, and is associated with the enlarged proxi mal MAKI. On this examination, the inferior and mesenteric artery appears occluded, but I do not see a ny findings that would suggest any type of bowel wall edema. The dissection along the right side of t he aorta which extends into the right common iliac artery is similar to the previous study. The AP di mension of the aorta is approximately 4.7-4.8 cm. The aneurysmal dilatation of the right common iliac artery is also stable at approximately 3.8 cm. The visualized liver, spleen, and pancreas regions are unremarkable. Gallbladder has been removed. Right and left adrenal glands, and right and left kidneys are normal in size. No free fluid seen in t abdomen. IMPRESSION: 1. Aortic stent beginning just lateral to the left side of the left common carotid artery. There is a left subclavian stent present and a subclavian dissection is stable. The aneurysmal dilatation of t he descending thoracic aorta is similar to the previous examination. Also, the dilatation of the abdo bo aorta is similar. 2. Complex vascular anatomy. There are multiple surgical clips in what may have been some reimplanta tion of some of the abdominal aortic vessels, as discussed above. There is narrowing to the origin of the celiac artery. Very tortuous superior mesenteric artery. I am not certain if this is related to some type of reimplantation. 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 All of these changes appear similar to the previous examination. 3. Stable appearance to the abdominal aortic dissection and aneurysm with extension of the dissectio n and aneurysm into the right common iliac artery. 4. 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 I do not see any signs of any bowel wall findings associated with this. POS: TPC
[2019-01-11] MEDS ORDERED: ISOVUE-370 76%-LOCM 1 ML ONE (16:31)
--- NOTE | 2019-01-16 13:44 | EKG ---
Test Reason : Blood Pressure : / mmHG Vent. Rate : 087 BPM Atrial Rate : 087 BPM P-R Int : 162 ms QRS Dur : 082 ms QT Int : 360 ms P-R-T Axes : 058 -03 106 degrees QTc Int : 433 ms Normal sinus rhythm Possible Left atrial enlargement Left ventricular hypertrophy with repolarization abnormality Abnormal ECG Confirmed by JUAN C CARTER, JUAN CARLOS ([id number]), non linear editor CONSTANTINO ARANA ([id number]) on 01/16/2019 1:44:12 PM Referred By: Confirmed By:JUAN CARLOS IRIZARRY MD
== END 2019-01-11 18:14 | disposition short-term general hospital (02) ==
LOC: ERS 14:43
DX: I71.01 Dissection of thoracic aorta (principal); I16.0 Hypertensive urgency; I11.0 Hypertensive heart disease with heart failure; I50.9 Heart failure, unspecified; E78.5 Hyperlipidemia, unspecified; F31.9 Bipolar disorder, unspecified; F41.9 Anxiety disorder, unspecified; F17.210 Nicotine dependence, cigarettes, uncomplicated; Z79.899 Other long term (current) drug therapy
CPT/HCPCS: 36415; 71045; 71275; 80053; 82550; 83690; 83880; 84484; 84703; 85025; 86850; 86900; 86901; 93005; 94760; 96365; 96366; 96375; 96376; J2060; J3010; Q9966

== ENCOUNTER 2019-04-22 13:55 | Emergency (ER) | payer OTHER ==
[2019-04-22 14:44] LABS: #Eosinphils 0.2 thou/uL (0.0-0.7); #Lymphocytes 2.3 thou/uL (1.20-3.40); #Monocytes 0.4 thou/uL (0.11-0.59); #Neutrophils 6.1 thou/uL (1.40-6.50); %Basophils 0.3 % (0.0-1.0); %Lymphocytes 25.7 % (21.0-51.0); %Monocytes 4.1 % (0.0-10.0); %Neutrophils 67.9 % (42.0-75.0); Hemoglobin 14.5 g/dL (12.0-16.0); Mean Corpuscular Hemoglobin 29.4 pg (27.0-31.0); Mean Platelet Volume 7.1 fL (7.4-10.4); Platelet Count 230 thou/uL (130-400); RBC Distribution Width 13.2 % (11.5-14.5); Red Blood Cell (RBC) Count 4.93 mill/uL (4.20-5.40)
--- NOTE | 2019-04-22 14:52 | RAD ---
PORTABLE CHEST 1 VIEW: DATE: 04/22/2019. TIME: 2:22 p.m. HISTORY: Chest pain. FINDINGS: Comparison is made with the exam of 01/11/2019. The heart size is normal. There are changes of median sternotomy. Thoracic aortic stent graft is ag ain seen. No lobar consolidation, pneumothoraces, albert pulmonary edema, or pleural effusions are se en. IMPRESSION: No acute process. POS: OFF
[2019-04-22] MEDS ORDERED: Fentanyl 100 MCG/2 ML VIAL ONE (14:53)
[2019-04-22 15:04] LABS: ALT (SGPT) 12 U/L (8-55); AST (SGOT) 11 U/L (5-34); Albumin 4.3 g/dL (3.5-5.0); Alkaline Phosphatase 125 U/L (40-150); Anion Gap 18 mmol/L (10-20); BUN (Urea Nitrogen) 14 mg/dL (7.0-18.7); Bilirubin, Total 0.4 mg/dL (0.2-1.2); CK (CPK) 75 U/L (29-168); Calc. Creatinine Clearance 0 mL/min (70-130); Calcium 9.5 mg/dL (7.8-10.44); Carbon Dioxide 21 mmol/L (22-29); Chloride 106 mmol/L (98-107); Estimated GFR-MDRD 69; Globulin 2.8 g/dL (2.4-3.5); Glucose 132 mg/dL (70-105); Potassium 3.4 mmol/L (3.5-5.1); Protein, Total 7.1 g/dL (6.0-8.3); Sodium 142 mmol/L (136-145)
--- NOTE | 2019-04-24 11:20 | EKG ---
Test Reason : ELEVATED HR Blood Pressure : / mmHG Vent. Rate : 106 BPM Atrial Rate : 106 BPM P-R Int : 172 ms QRS Dur : 086 ms QT Int : 364 ms P-R-T Axes : 055 -02 090 degrees QTc Int : 483 ms Sinus tachycardia Possible Left atrial enlargement Left ventricular hypertrophy with repolarization abnormality Cannot rule out Septal infarct , age undetermined Abnormal ECG Confirmed by SEE WOLFF DO ([id number]), video editor CONSTANTINO ARANA ([id number]) on 04/24/2019 11:20:20 AM Referred By: Confirmed By:SEE WOLFF DO
== END 2019-04-22 15:48 | disposition home or self-care (01) ==
LOC: ERS 13:55
DX: I47.1 Supraventricular tachycardia (principal); I11.0 Hypertensive heart disease with heart failure; I50.9 Heart failure, unspecified; I49.9 Cardiac arrhythmia, unspecified; F31.9 Bipolar disorder, unspecified; E78.5 Hyperlipidemia, unspecified; F17.210 Nicotine dependence, cigarettes, uncomplicated; Z79.891 Long term (current) use of opiate analgesic; Z79.899 Other long term (current) drug therapy
CPT/HCPCS: 36415; 71045; 80053; 82550; 84484; 85025; 93005; 96374; J3010

== ENCOUNTER 2023-04-16 17:10 | Inpatient (IN) | payer OTHER ==
[~2023-04-16 17:10] MED LIST changes: -ISOVUE-370 76%-LOCM 1 ML ONE; +Iopamidol-370 76% 500 ML MDV (1 ML CHARGE) ONE
[2023-04-16] MEDS ORDERED: Ondansetron PF 4 MG/2 ML Vial ONE ×2 (17:19→18:13)
[2023-04-16] MEDS ORDERED: Nitroglycerin 0.4 MG TAB 1 EACH ONE (17:19)
[2023-04-16] MEDS ORDERED: Morphine 4 MG/ML VIAL ONE ×2 (17:19→20:16)
[2023-04-16 17:40] LABS: #Basophils 0.1 thou/uL (0.0-0.2); #Eosinphils 0.1 thou/uL (0.0-0.7); #Monocytes 0.8 thou/uL (0.11-0.59); #Neutrophils 5.6 thou/uL (1.40-6.50); %Basophils 0.6 % (0.0-1.0); %Eosinophils 1.7 % (0.0-10.0); %Lymphocytes 19.9 % (21.0-51.0); %Monocytes 9.6 % (0.0-10.0); %Neutrophils 68.1 % (42.0-75.0); Hemoglobin 13.3 g/dL (12.0-16.0); Mean Corpuscular HGB CONC 30.6 g/dL (32.0-36.0); Mean Corpuscular Hemoglobin 28.6 pg (27.0-31.0); Mean Corpuscular Volume 93.3 fl (78.0-98.0); Platelet Count 217 10x3/uL (130-400); Red Blood Cell (RBC) Count 4.65 mill/uL (4.20-5.40); White Blood Cell (WBC) Count 8.2 10x3/uL (4.8-10.8)
[2023-04-16] MEDS ORDERED: Aspirin Chewable 81 MG TAB ONE (17:44)
[2023-04-16] MEDS ORDERED: fentaNYL 50 mcg/mL 1 mL Vial ONE (18:07)
[2023-04-16] MEDS ORDERED: Nitroglycerin 50 MG/250 ML BOT 250 ML ONE (18:07)
[2023-04-16] MEDS ORDERED: Acetaminophen 500 MG TAB ONE (18:07)
[2023-04-16 18:08] LABS: ALT (SGPT) 9 U/L (8-55); AST (SGOT) 16 U/L (5-34); Albumin 3.8 g/dL (3.5-5.0); Alkaline Phosphatase 186 U/L (40-110); Anion Gap 13 mmol/L (10-20); BUN (Urea Nitrogen) 17 mg/dL (9.8-20.1); Calc. Creatinine Clearance 0 mL/min (70-130); Calcium 9.3 mg/dL (7.8-10.44); Carbon Dioxide 28 mmol/L (22-29); Chloride 105 mmol/L (98-107); Estimated GFR 80; Globulin 3.2 g/dL (2.4-3.5); Glucose 102 mg/dL (70-105); Potassium 3.6 mmol/L (3.5-5.1); Sodium 142 mmol/L (136-145)
[2023-04-16] MEDS ORDERED: Furosemide 40 MG/4 ML VIAL ONE (19:23)
[2023-04-16] MEDS ORDERED: Ondansetron ODT 4 MG TAB PO PRN (20:21)
[2023-04-16] MEDS ORDERED: Ondansetron PF 4 MG/2 ML Vial IVP PRN (20:21)
[2023-04-16] MEDS ORDERED: Acetaminophen 650 MG Suppository PR PRN (20:21)
[2023-04-16] MEDS ORDERED: Acetaminophen 325 MG TAB PO PRN (20:21)
[2023-04-16] MEDS ORDERED: niCARdipine 25 MG/10 ML SDV ONE (20:24)
[2023-04-16 21:52] LABS: Troponin I 0.015 ng/mL (< 0.028)
[2023-04-16 22:19] VITALS: BMI 39.4
[2023-04-16] MEDS ORDERED: Labetalol HCl 100 MG/20 ML VIAL SLOW IVP PRN (22:21)
[2023-04-16] MEDS: HYDROcodone/Acetaminophen 7.5/325 mg Tablet PO PRN (22:21)
[2023-04-16] MEDS ORDERED: Nitroglycerin 0.4 MG TAB (25 Tab Bottle) SL PRN (22:21)
[2023-04-16] MEDS ORDERED: hydrALAZINE 20 MG/ML VIAL SLOW IVP PRN (22:21)
[2023-04-16] MEDS: Ipratropium/Albuterol 3 ML NEB NEB PRN (22:43)
[2023-04-16] MEDS: niCARdipine 25 MG in Sodium Chloride 0.9% 250 ML 250 ML IVPB SCH (23:19)
[2023-04-17 00:33] LABS: Troponin I 0.026 ng/mL (< 0.028)
[2023-04-17] MEDS: Ipratropium/Albuterol 3 ML NEB NEB SCH ×4 (00:44→18:43)
[2023-04-17] MEDS: Morphine 2 MG/ML VIAL SLOW IVP PRN ×4 (01:19→20:54)
[2023-04-17] MEDS: HYDROcodone/Acetaminophen 7.5/325 mg Tablet PO PRN ×3 (03:41→18:52)
[2023-04-17 04:01] LABS: #Basophils 0.1 thou/uL (0.0-0.2); #Eosinphils 0.2 thou/uL (0.0-0.7); #Monocytes 0.8 thou/uL (0.11-0.59); #Neutrophils 4.8 thou/uL (1.40-6.50); %Basophils 0.7 % (0.0-1.0); %Eosinophils 2.2 % (0.0-10.0); %Lymphocytes 22.4 % (21.0-51.0); %Monocytes 10.1 % (0.0-10.0); %Neutrophils 64.2 % (42.0-75.0); Hemoglobin 13.1 g/dL (12.0-16.0); Mean Corpuscular HGB CONC 30.3 g/dL (32.0-36.0); Mean Corpuscular Volume 92.5 fl (78.0-98.0); Mean Platelet Volume 9.6 fL (7.4-10.4); Platelet Count 198 10x3/uL (130-400); RBC Distribution Width 16.1 % (11.5-14.5); Red Blood Cell (RBC) Count 4.68 mill/uL (4.20-5.40); White Blood Cell (WBC) Count 7.4 10x3/uL (4.8-10.8)
[2023-04-17 04:23] LABS: Anion Gap 12 mmol/L (10-20); BUN (Urea Nitrogen) 15 mg/dL (9.8-20.1); Calc. Creatinine Clearance 167 mL/min (70-130); Calcium 8.9 mg/dL (7.8-10.44); Carbon Dioxide 29 mmol/L (22-29); Chloride 104 mmol/L (98-107); Estimated GFR 81; Glucose 109 mg/dL (70-105); Potassium 2.9 mmol/L (3.5-5.1); Sodium 142 mmol/L (136-145)
[2023-04-17] MEDS ORDERED: Electrolyte Replacement Protocol 1 EACH FS PRN (05:45)
[2023-04-17] MEDS ORDERED: Magnesium 2 GM/50 ML(in water) 2 GM in Premix Bag 1 BAG IVPB SCH (06:00)
[2023-04-17] MEDS: Furosemide 40 MG/4 ML VIAL SLOW IVP SCH ×2 (06:34→13:27)
[2023-04-17] MEDS: Potassium Chloride 20 MEQ TAB PO SCH ×2 (06:42→10:49)
[2023-04-17] MEDS ORDERED: hydrALAZINE 20 MG/ML VIAL SLOW IVP PRN (09:09)
[2023-04-17] MEDS ORDERED: Labetalol HCl 100 MG/20 ML VIAL SLOW IVP PRN (09:09)
[2023-04-17] MEDS ORDERED: Carvedilol 25 MG TAB PO SCH (09:45)
[2023-04-17] MEDS: Famotidine/PF 20 mg/2ml Vial SLOW IVP SCH ×2 (10:18→21:01)
[2023-04-17] MEDS: Polyethylene Glycol 3350 17 GM Packet PO SCH (10:49)
[2023-04-17] MEDS ORDERED: Senokot S 8.6-50 MG TAB PO SCH (11:15)
[2023-04-17] MEDS: niCARdipine 25 MG in Sodium Chloride 0.9% 250 ML 250 ML IVPB SCH ×5 (11:27→22:08)
[2023-04-17] MEDS: Senokot S 8.6-50 MG TAB PO SCH ×2 (11:27→21:01)
[2023-04-17] MEDS ORDERED: ALPRAZolam 0.25 MG TAB PO SCH (14:00)
[2023-04-17 15:06] LABS: SARS-CoV-2 NAA Rapid Test Not Detected (NotDetected)
[2023-04-17] MEDS: Carvedilol 6.25 MG TAB PO SCH (16:52)
[2023-04-17] MEDS: Ipratropium/Albuterol 3 ML NEB NEB PRN (22:44)
[2023-04-18] MEDS: Ipratropium/Albuterol 3 ML NEB NEB SCH ×3 (00:27→13:47)
[2023-04-18] MEDS: niCARdipine 25 MG in Sodium Chloride 0.9% 250 ML 250 ML IVPB SCH ×5 (03:58→15:18)
[2023-04-18] MEDS: Morphine 2 MG/ML VIAL SLOW IVP PRN (04:47)
[2023-04-18] MEDS: Furosemide 40 MG/4 ML VIAL SLOW IVP SCH ×2 (05:42→15:18)
[2023-04-18] MEDS ORDERED: Budesonide 0.25 MG/2 ML NEB INH SCH (06:30)
[2023-04-18 06:56] LABS: #Eosinphils 0.1 thou/uL (0.0-0.7); #Monocytes 0.5 thou/uL (0.11-0.59); #Neutrophils 4.5 thou/uL (1.40-6.50); %Basophils 0.5 % (0.0-1.0); %Eosinophils 2.2 % (0.0-10.0); %Monocytes 7.9 % (0.0-10.0); %Neutrophils 71.2 % (42.0-75.0); Hemoglobin 12.9 g/dL (12.0-16.0); Mean Corpuscular HGB CONC 29.7 g/dL (32.0-36.0); Mean Corpuscular Hemoglobin 28.2 pg (27.0-31.0); Mean Platelet Volume 10.1 fL (7.4-10.4); Platelet Count 212 10x3/uL (130-400); RBC Distribution Width 16.1 % (11.5-14.5); Red Blood Cell (RBC) Count 4.57 mill/uL (4.20-5.40); White Blood Cell (WBC) Count 6.3 10x3/uL (4.8-10.8)
[2023-04-18 07:11] VITALS: TEMP 98.3
[2023-04-18 07:15] LABS: Anion Gap 9 mmol/L (10-20); BUN (Urea Nitrogen) 18 mg/dL (9.8-20.1); Calc. Creatinine Clearance 146 mL/min (70-130); Calcium 8.7 mg/dL (7.8-10.44); Carbon Dioxide 31 mmol/L (22-29); Chloride 103 mmol/L (98-107); Estimated GFR 66; Glucose 135 mg/dL (70-105); Potassium 3.7 mmol/L (3.5-5.1); Sodium 139 mmol/L (136-145)
[2023-04-18] MEDS: HYDROcodone/Acetaminophen 7.5/325 mg Tablet PO PRN (07:19)
[2023-04-18] MEDS: Carvedilol 6.25 MG TAB PO SCH (07:19)
[2023-04-18 07:21] VITALS: BP 117/70
[2023-04-18] MEDS: Polyethylene Glycol 3350 17 GM Packet PO SCH (08:47)
[2023-04-18] MEDS: Senokot S 8.6-50 MG TAB PO SCH (08:47)
[2023-04-18] MEDS: Famotidine/PF 20 mg/2ml Vial SLOW IVP SCH (08:47)
== END 2023-04-18 15:50 | disposition short-term general hospital (02) | DRG 304 ==
LOC: ERS 17:10 → CCU 20:10
PROVIDERS: ADMIT Student in an Organized Health Care Education/Training Program; ATTEND Internal Medicine
DX: I16.0 Hypertensive urgency (principal); I50.33 Acute on chronic diastolic (congestive) heart failure; I71.03 Dissection of thoracoabdominal aorta; I16.1 Hypertensive emergency; Z68.41 Body mass index [BMI] 40.0-44.9, adult; I11.0 Hypertensive heart disease with heart failure; N20.0 Calculus of kidney; I72.3 Aneurysm of iliac artery; E66.01 Morbid (severe) obesity due to excess calories; E87.6 Hypokalemia; E78.5 Hyperlipidemia, unspecified; F17.210 Nicotine dependence, cigarettes, uncomplicated; F31.9 Bipolar disorder, unspecified; Z20.822 Contact with and (suspected) exposure to COVID-19; K76.0 Fatty (change of) liver, not elsewhere classified; Z88.8 Allergy status to other drugs, medicaments and biological substances; Z79.899 Other long term (current) drug therapy; Z90.49 Acquired absence of other specified parts of digestive tract; Z95.4 Presence of other heart-valve replacement; Z98.890 Other specified postprocedural states; Z95.1 Presence of aortocoronary bypass graft; Z71.6 Tobacco abuse counseling; I48.91 Unspecified atrial fibrillation; F41.9 Anxiety disorder, unspecified
CPT/HCPCS: 36415; 70450; 71045; 71275; 74174; 80048; 80053; 83735; 83880; 84484; 85025; 93005; 93010; 93306; 94640; 94760; 96365; 96375; 96376; J1940; J2270; J2272; J2405; J3010; J3475; J7050; J7620; J7626; Q9967; S0028; U0002

== ENCOUNTER 2025-06-16 22:15 | Emergency (ER) | payer OTHER ==
[~2025-06-16 22:15] MED LIST changes: +Iopamidol 370 76% 100 ML VIAL ONE; -Iopamidol-370 76% 500 ML MDV (1 ML CHARGE) ONE
[2025-06-16 22:31] LABS: #Basophils 0.06 10x3/uL (0.0-0.2); #Eosinophils 0.09 10x3/uL (0.0-0.7); #Monocytes 0.79 10x3/uL (0.11-0.59); #Neutrophils 6.58 10x3/uL (1.40-6.50); %Basophils 0.7 % (0.0-1.0); %Eosinophils 1.0 % (0.0-10.0); %Lymphocytes 18.1 % (21.0-51.0); %Monocytes 8.6 % (0.0-10.0); %Neutrophils 71.3 % (42.0-75.0); Hematocrit 44.0 % (36.0-47.0); Hemoglobin 13.3 g/dL (12.0-16.0); Mean Corpuscular Hemoglobin 28.5 pg (27.0-31.0); Mean Corpuscular Volume 94.2 fL (78.0-98.0); Platelet Count 194 10x3/uL (130-400); Red Blood Cell (RBC) Count 4.67 mill/uL (4.20-5.40); White Blood Cell (WBC) Count 9.22 10x3/uL (4.8-10.8)
[2025-06-16 22:45] LABS: INR-International Normal Ratio 1.2; Prothrombin Time 15.5 sec (12.0-14.7)
[2025-06-16 22:46] LABS: PTT 31.2 sec (22.9-36.1)
[2025-06-16] MEDS ORDERED: Metoprolol Tartrate 5 MG (5 mL) VIAL ONE (22:59)
[2025-06-16 23:14] LABS: ALT (SGPT) 11 U/L (Less than 34); AST (SGOT) 16 U/L (11-34); Albumin 4.0 g/dL (3.1-4.5); Alkaline Phosphatase 145 U/L (40-110); Anion Gap 12 mmol/L (10-20); BUN (Urea Nitrogen) 18 mg/dL (9.8-20.1); Bilirubin, Total 0.9 mg/dL (0.3-1.2); Calc. Creatinine Clearance 0 mL/min (70-130); Calcium 9.0 mg/dL (7.8-10.44); Carbon Dioxide 24 mmol/L (22-29); Chloride 109 mmol/L (98-107); Globulin 3.1 g/dL (2.4-3.5); Glucose 131 mg/dL (70-105); Potassium 3.4 mmol/L (3.5-5.1); Sodium 142 mmol/L (136-145)
[2025-06-16] MEDS ORDERED: Ondansetron PF 4 MG/2 ML Vial ONE (23:48)
== END 2025-06-17 02:27 | disposition short-term general hospital (02) ==
LOC: ERS 22:15
DX: R07.9 Chest pain, unspecified (principal); M54.9 Dorsalgia, unspecified; I71.23 Aneurysm of the descending thoracic aorta, without rupture; I11.0 Hypertensive heart disease with heart failure; I50.9 Heart failure, unspecified; F17.210 Nicotine dependence, cigarettes, uncomplicated; Z79.899 Other long term (current) drug therapy
CPT/HCPCS: 71045; 71275; 74174; 80053; 83605; 83880; 84484; 85025; 85610; 85730; 86850; 86900; 86901; 93005; 94760; 96374; 96375; 96376; J2405; J3010; Q9967